=== PATIENT | male | born 1990 | race Two or more races ===

== ENCOUNTER 2020-07-19 18:32 | Emergency (ER) | payer SELFPAY ==
[~2020-07-19] VITALS: Ht 167.6 cm; Wt 80.4 kg
[~2020-07-19 18:32] MED LIST: CYCL10TA2 PO
--- NOTE | 2020-07-19 19:35 | RAD ---
Exam: Right hand 3 views INDICATION: Infiltrates in right hand TECHNIQUE: Frontal, lateral and oblique views of the right hand Comparisons: None FINDINGS: Metallic foreign body is seen with average projecting in the thenar compartment soft tissues. Bone mineralization is normal. No acute fracture. Joint spaces are well-maintained. IMPRESSION: Large metallic foreign body, likely penetrating into the first webspace of the right anterior Electronically signed by: Chela Wilcox MD (07/19/2020 7:32 PM) [facility]
[2020-07-19] MEDS ORDERED: LIDOCAINE 1% Multi-Dose 20 ML VIAL. INJ ONE (19:45)
[2020-07-19] MEDS ORDERED: DIPH,PERTUSS(ACELL),TET VAC/PF 0.5 ML SYRINGE. VAX IM ONE (20:00)
[2020-07-19 20:04] VITALS: BP 146/68
[2020-07-19] MEDS ORDERED: CEPH500T PO (21:09)
[2020-07-19] MEDS ORDERED: HYDR-3164 PO (21:09)
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
== END 2020-07-19 21:16 | disposition home or self-care (01) ==
LOC: ER 18:32
DX: S60.551A Superficial foreign body of right hand, initial encounter (principal); F17.200 Nicotine dependence, unspecified, uncomplicated; W45.8XXA Other foreign body or object entering through skin, initial encounter; Y93.89 Activity, other specified; Y92.89 Other specified places as the place of occurrence of the external cause; Y99.8 Other external cause status
CPT/HCPCS: 10120; 73130; 90471; 90715; 99284; J3490